=== PATIENT | female | born 1970 | race Caucasian/White ===

== ENCOUNTER 2018-07-11 13:13 | Emergency (ER) | payer OTHER, SELFPAY ==
[2018-07-11 13:20] VITALS: BP 132/84; PULSE 75; RESP 18; TEMP 36.7; O2SAT 100
--- NOTE | 2018-07-11 13:34 | ED.ABDPAIN ---
HPI - Abdominal Pain <WALTER Jules - Last Filed: 07/11/18 15:47> General Chief Complaint: Abdominal Pain Stated Complaint: fluid in abdomen Time Seen by Provider: 07/11/18 13:34 Source: patient Mode of arrival: ambulatory Limitations: no limitations History of Present Illness HPI narrative: c/o feeling bloated and went to [facility] yesterday for it, and was told she had fluid in her belly that needed drained started with abd pain and diarrhea x1 week, diarrhea started that night and next day was gone, had bm today and it was looser than normal, pain is now gone just feels bloated complaint: abdominal pain Onset (ago): week(s) (1) Pain Consistency: constant Location: diffuse Severity: mild Quality: cramping Radiation: none Migration to: no migration Relieving factors: nothing Exacerbating factors: nothing Associated symptoms: denies other symptoms Related Data Home Medications Medication Instructions Recorded Confirmed albuterol sulfate [ProAir HFA] 1 puff INHALATION PRN PRN 07/11/18 07/11/18 loratadine 10 mg PO DAILY 07/11/18 07/11/18 ranitidine HCl 150 mg PO BID 07/11/18 07/11/18 Allergies Allergy/AdvReac Type Severity Reaction Status Date / Time Sulfa (Sulfonamide Allergy Unknown Unverified 12/06/17 11:48 Antibiotics) [SULFA (SULFONAMIDE ANTIBIOTICS)] Tetracyclines [TETRACYCLINES] Allergy Unknown Unverified 12/06/17 11:48 Review of Systems <WALTER Jules - Last Filed: 07/11/18 15:47> Constitutional Reports as per HPI, Reports system reviewed and no additional complaints, except as docu, Denies fever(s) and Denies poor appetite Cardiovascular Denies chest pain and Denies dyspnea Respiratory Denies dyspnea Gastrointestinal Gastrointestinal: Reports as per HPI, Reports abdominal pain, Denies melena, Reports bloating, Denies hematochezia, Denies change in bowel habits, Denies change in stool character, Denies constipation, Denies cramping, Denies fecal incontinence, Denies diarrhea, Reports loose stools, Denies nausea and Denies vomiting Genitourinary Denies dysuria Musculoskeletal Denies back pain Exam <WALTER Jules - Last Filed: 07/11/18 15:47> Initial Vital Signs Initial Vital Signs: Vital Signs Temperature 98.1 F 07/11/18 13:20 Pulse Rate 75 07/11/18 13:20 Respiratory Rate 18 07/11/18 13:20 Blood Pressure 132/84 07/11/18 13:20 Pulse Oximetry 100 07/11/18 13:20 Const General: cooperative, healthy appearing, comfortable and well developed Nutritional Appearance: average body habitus Orientation: alert, awake and oriented x3 Resp Effort & Inspection: normal respiratory effort and able to speak in complete sentences Auscultation: clear to auscultation bilaterally Cardio Rate: regular rate Rhythm: regular rhythm Heart Sounds: S1 normal and S2 normal GI Inspection: normal to inspection, no edema, non-distended and no obesity Palpation: soft and No tender Auscultation: normal bowel sounds Back/Spine/Pelvis Cervical Spine: cervical ROM normal Thoracic/Lumbar Spine: thoraco-lumbar ROM limited Skin General: no rashes or lesions noted, elasticity normal, turgor normal and warm Neuro General: alert, awake and oriented x3 Cranial Nerves: CN's II-XI intact bilaterally Cognition: normal cognition Speech: speech normal Motor: muscle tone normal throughout Sensory Exam: no sensory deficits noted Psych Appearance: grossly normal and well kempt Mental Status: mental status grossly normal Speech and Movement: speech and movement normal Mood: congruent mood Affect: normal affect Attitude: cooperative Thought Process: normal Thought Content: normal Judgment: judgment good <Mariposa Alfred DO - Last Filed: 07/12/18 07:20> Initial Vital Signs Initial Vital Signs: Vital Signs Temperature 98.1 F 07/11/18 13:20 Pulse Rate 75 07/11/18 13:20 Respiratory Rate 18 07/11/18 13:20 Blood Pressure 132/84 07/11/18 13:20 Pulse Oximetry 100 07/11/18 13:20 Course <WALTER Jules - Last Filed: 07/11/18 15:47> Course Narrative: results and dc plan discussed, pt encouraged to f/u with GI for possible scope if continued issues with feeling bloated Orders Ordered: ED Orders 07/11/18 13:30 Amylase Stat Complete Blood Count AUTO DIFF Stat Comprehensive Metabolic Panel Stat Lipase Stat Partial Thromboplastin Time Stat Prothrombin Time INR Stat 07/11/18 13:45 CT abdomen pelvis w con Stat 07/11/18 13:53 US abdomen complete Stat Vital Signs - 8 hr 07/11/18 13:20 07/11/18 15:26 Temperature 98.1 F Pulse Rate 75 80 Respiratory Rate 18 16 Blood Pressure 132/84 Blood Pressure [Left Arm] 97/74 Pulse Oximetry 100 100 <Mariposa Alfred DO - Last Filed: 07/12/18 07:20> Orders Ordered: ED Orders 07/11/18 13:30 Amylase Stat Complete Blood Count AUTO DIFF Stat Comprehensive Metabolic Panel Stat Lipase Stat Partial Thromboplastin Time Stat Prothrombin Time INR Stat 07/11/18 13:45 CT abdomen pelvis w con Stat 07/11/18 13:53 US abdomen complete Stat Vital Signs - 8 hr 07/11/18 13:20 07/11/18 15:26 Temperature 98.1 F Pulse Rate 75 80 Respiratory Rate 18 16 Blood Pressure 132/84 Blood Pressure [Left Arm] 97/74 Pulse Oximetry 100 100 MDM - Abdominal Pain <WALTER Jules - Last Filed: 07/11/18 15:47> Differential Diagnosis Differential diagnosis: Likely abdominal pain, acute appendicitis, constipation, diverticulitis, gastroenteritis, small bowel obstruction and other (ascites, liver failure, chrons, ca) Lab Data Attestation: I reviewed the patient's lab results. Result diagrams: 07/11/18 13:30 07/11/18 13:30 Lab Results 07/11/18 07/11/18 07/11/18 Range/Units 13:30 13:30 13:30 WBC 7.2 (4.5-11.0) X10^3/uL RBC 5.16 (4.0-5.2) X10^6/uL Hgb 16.0 (12.0-16.0) g/dL Hct 46.5 H (36-46) % MCV 90.2 (80-100) fL MCH 31.1 (26-34) PG MCHC 34.5 (30-36) % RDW 12.6 (11.6-14.8) % Plt Count 245 (150-400) X10^3/uL Neut % (Auto) 65.2 (50-75) % Lymph % (Auto) 24.4 L (25-40) % [place] % (Auto) 8.0 (3-14) % Eos % (Auto) 1.5 L (2-4) % Baso % (Auto) 0.9 (0-2) % Neut # (Auto) 4700 (9629-3864) /uL PT 11.3 (10.1-12.7) SECONDS INR 1.1 (0.9-1.3) APTT 31 (26.4-36.2) SECONDS Sodium 145 (137-145) mmol/L Potassium 4.4 (3.4-5.1) mmol/L Chloride 101 (98-107) mmol/L Carbon Dioxide 32 (22-32) mmol/L BUN 14 (7-17) mg/dL Creatinine 0.80 (0.52-1.04) mg/dL Estimated GFR > 60.0 (>60) mL/min BUN/Creatinine Ratio 17.5 (6-22) Glucose 80 (70-100) mg/dL Calcium 9.3 (8.4-10.2) mg/dL Total Bilirubin 0.5 (0.2-1.3) mg/dL AST 35 (14-36) IU/L ALT 42 (9-52) IU/L Alkaline Phosphatase 66 (38-126) U/L Total Protein 7.8 (6.3-8.2) g/dL Albumin 4.9 (3.5-5.0) g/dL Globulin 2.9 (1.7-4.1) g/dL Albumin/Globulin Ratio 1.7 (1.0-2.8) Amylase (30-110) U/L Lipase 143 (23-300) U/L /14/18 Range/Units 13:30 WBC (4.5-11.0) X10^3/uL RBC (4.0-5.2) X10^6/uL Hgb (12.0-16.0) g/dL Hct (36-46) % MCV (80-100) fL MCH (26-34) PG MCHC (30-36) % RDW (11.6-14.8) % Plt Count (150-400) X10^3/uL Neut % (Auto) (50-75) % Lymph % (Auto) (25-40) % [place] % (Auto) (3-14) % Eos % (Auto) (2-4) % Baso % (Auto) (0-2) % Neut # (Auto) (6994-0204) /uL PT (10.1-12.7) SECONDS INR (0.9-1.3) APTT (26.4-36.2) SECONDS Sodium (137-145) mmol/L Potassium (3.4-5.1) mmol/L Chloride (98-107) mmol/L Carbon Dioxide (22-32) mmol/L BUN (7-17) mg/dL Creatinine (0.52-1.04) mg/dL Estimated GFR (>60) mL/min BUN/Creatinine Ratio (6-22) Glucose (70-100) mg/dL Calcium (8.4-10.2) mg/dL Total Bilirubin (0.2-1.3) mg/dL AST (14-36) IU/L ALT (9-52) IU/L Alkaline Phosphatase (38-126) U/L Total Protein (6.3-8.2) g/dL Albumin (3.5-5.0) g/dL Globulin (1.7-4.1) g/dL Albumin/Globulin Ratio (1.0-2.8) Amylase 76 (30-110) U/L Lipase Cancelled (23-300) U/L Point of care testing: Urine Dip Bedside Urine Glucose Negative Bedside Urine Bilirubin - Negative Bedside Urine Ketone - Negative Urine Specific Stryker 1.005 Bedside Urine Occult Blood - Negative Bedside Urine pH 7.0 Bedside Urine Protein - Negative Bedside Urine Urobilinogen - Negative Bedside Urine Nitrite - Negative Bedside Urine Leukocytes - Negative Esterase Imaging Data US - abdomen: My impression: per verbal report by tech Curly - neg CT scan - abdomen: Radiologist's impression: Patient: Elizabeth Nguyen BMR#: [id number] : 1970Acct:[id number] Age/Sex: 47 / FDate of Service: 07/11/18 Loc: ED Accession Number: [id number] Procedure: CT abdomen pelvis w con Ordering Provider: Lorna Lim PROCEDURE: CT ABDOMEN PELVIS W CON INDICATIONS: abd pain TECHNIQUE: After the administration of intravenous contrast, 5 mm thick sections acquired from the diaphragm to the symphysis. 5 mm coronal and sagittal reformats were acquired. For radiation dose reduction, the following was used: automated exposure control, adjustment of mA and/or kV according to patient size. COMPARISON: None. FINDINGS: Image quality: Excellent. ABDOMEN: Lung bases: Lung bases are clear. Heart size is normal. Solid organs: Liver is normal in size and enhancement. Gallbladder is unremarkable. Biliary system is non dilated. Pancreas enhances normally. Spleen is normal in size and enhancement. No adrenal nodules. Kidneys demonstrate normal size and enhancement, without hydronephrosis. Peritoneum and bowel: Bowel loops demonstrate normal wall thickness and caliber. The appendix is thin walled and gas filled. No free fluid or air. Nodes and vessels: No retroperitoneal or mesenteric adenopathy by size criteria. Aorta and inferior vena cava are normal in size. Miscellaneous: No ventral hernias. PELVIS: Genitourinary: Bladder wall thickness is normal. The uterus and ovaries are not visualized and are presumably surgically absent. Miscellaneous: No inguinal hernias or adenopathy. Bones: No suspicious bony lesions. No vertebral body compression fractures. IMPRESSION: 1. No acute intra-abdominal findings. Specifically, no bowel dilatation to suggest obstruction or ileus. 2. Normal appendix. Dictated by: Cathy Houston M.D. on 07/11/2018 at 14:50 Approved by: Cathy Houston M.D. on 07/11/2018 at 14:53 <Mariposa Alfred DO - Last Filed: 07/12/18 07:20> Lab Data Lab Results 07/11/18 07/11/18 07/11/18 Range/Units 13:30 13:30 13:30 WBC 7.2 (4.5-11.0) X10^3/uL RBC 5.16 (4.0-5.2) X10^6/uL Hgb 16.0 (12.0-16.0) g/dL Hct 46.5 H (36-46) % MCV 90.2 (80-100) fL MCH 31.1 (26-34) PG MCHC 34.5 (30-36) % RDW 12.6 (11.6-14.8) % Plt Count 245 (150-400) X10^3/uL Neut % (Auto) 65.2 (50-75) % Lymph % (Auto) 24.4 L (25-40) % [place] % (Auto) 8.0 (3-14) % Eos % (Auto) 1.5 L (2-4) % Baso % (Auto) 0.9 (0-2) % Neut # (Auto) 4700 (2757-5557) /uL PT 11.3 (10.1-12.7) SECONDS INR 1.1 (0.9-1.3) APTT 31 (26.4-36.2) SECONDS Sodium 145 (137-145) mmol/L Potassium 4.4 (3.4-5.1) mmol/L Chloride 101 (98-107) mmol/L Carbon Dioxide 32 (22-32) mmol/L BUN 14 (7-17) mg/dL Creatinine 0.80 (0.52-1.04) mg/dL Estimated GFR > 60.0 (>60) mL/min BUN/Creatinine Ratio 17.5 (6-22) Glucose 80 (70-100) mg/dL Calcium 9.3 (8.4-10.2) mg/dL Total Bilirubin 0.5 (0.2-1.3) mg/dL AST 35 (14-36) IU/L ALT 42 (9-52) IU/L Alkaline Phosphatase 66 (38-126) U/L Total Protein 7.8 (6.3-8.2) g/dL Albumin 4.9 (3.5-5.0) g/dL Globulin 2.9 (1.7-4.1) g/dL Albumin/Globulin Ratio 1.7 (1.0-2.8) Amylase (30-110) U/L Lipase 143 (23-300) U/L /14/18 Range/Units 13:30 WBC (4.5-11.0) X10^3/uL RBC (4.0-5.2) X10^6/uL Hgb (12.0-16.0) g/dL Hct (36-46) % MCV (80-100) fL MCH (26-34) PG MCHC (30-36) % RDW (11.6-14.8) % Plt Count (150-400) X10^3/uL Neut % (Auto) (50-75) % Lymph % (Auto) (25-40) % [place] % (Auto) (3-14) % Eos % (Auto) (2-4) % Baso % (Auto) (0-2) % Neut # (Auto) (6072-4478) /uL PT (10.1-12.7) SECONDS INR (0.9-1.3) APTT (26.4-36.2) SECONDS Sodium (137-145) mmol/L Potassium (3.4-5.1) mmol/L Chloride (98-107) mmol/L Carbon Dioxide (22-32) mmol/L BUN (7-17) mg/dL Creatinine (0.52-1.04) mg/dL Estimated GFR (>60) mL/min BUN/Creatinine Ratio (6-22) Glucose (70-100) mg/dL Calcium (8.4-10.2) mg/dL Total Bilirubin (0.2-1.3) mg/dL AST (14-36) IU/L ALT (9-52) IU/L Alkaline Phosphatase (38-126) U/L Total Protein (6.3-8.2) g/dL Albumin (3.5-5.0) g/dL Globulin (1.7-4.1) g/dL Albumin/Globulin Ratio (1.0-2.8) Amylase 76 (30-110) U/L Lipase Cancelled (23-300) U/L Point of care testing: Urine Dip Bedside Urine Glucose Negative Bedside Urine Bilirubin - Negative Bedside Urine Ketone - Negative Urine Specific Stryker 1.005 Bedside Urine Occult Blood - Negative Bedside Urine pH 7.0 Bedside Urine Protein - Negative Bedside Urine Urobilinogen - Negative Bedside Urine Nitrite - Negative Bedside Urine Leukocytes - Negative Esterase Discharge Plan Departure Patient Disposition: Home Clinical Impression: Abdominal bloating Discharge Date/Time: 07/11/18 15:36 Interventions: ED Discharge Assessment Last Done: 07/11/18 15:36 Instructions: How to Avoid Gas, Acute Abdominal Pain Prescriptions: No Action ranitidine HCl 150 mg tablet 150 mg PO BID RF: 0 albuterol sulfate [ProAir HFA] 90 mcg/actuation HFA aerosol inhaler 1 puff Inhalation PRN PRN (Reason: Shortness Of Breath) RF: 0 loratadine 10 mg tablet 10 mg PO DAILY RF: 0 Referrals: Andrei Gilbert MD [Non-Staff] - (in approx 3-5 days as needed) <Mariposa Alfred DO - Last Filed: 07/12/18 07:20> Cosign ED Attending Cosignature Attestation: I was immediately available in the department for consultation. Documentation has been reviewed. I agree with assessment and plan.
--- NOTE | 2018-07-11 13:45 | DI.CT.S_ITS ---
PROCEDURE: CT ABDOMEN PELVIS W CON INDICATIONS: abd pain TECHNIQUE: After the administration of intravenous contrast, 5 mm thick sections acquired from the diaphragm to the symphysis. 5 mm coronal and sagittal reformats were acquired. For radiation dose reduction, the following was used: automated exposure control, adjustment of mA and/or kV according to patient size. COMPARISON: None. FINDINGS: Image quality: Excellent. ABDOMEN: Lung bases: Lung bases are clear. Heart size is normal. Solid organs: Liver is normal in size and enhancement. Gallbladder is unremarkable. Biliary system is non dilated. Pancreas enhances normally. Spleen is normal in size and enhancement. No adrenal nodules. Kidneys demonstrate normal size and enhancement, without hydronephrosis. Peritoneum and bowel: Bowel loops demonstrate normal wall thickness and caliber. The appendix is thin walled and gas filled. No free fluid or air. Nodes and vessels: No retroperitoneal or mesenteric adenopathy by size criteria. Aorta and inferior vena cava are normal in size. Miscellaneous: No ventral hernias. PELVIS: Genitourinary: Bladder wall thickness is normal. The uterus and ovaries are not visualized and are presumably surgically absent. Miscellaneous: No inguinal hernias or adenopathy. Bones: No suspicious bony lesions. No vertebral body compression fractures. IMPRESSION: 1. No acute intra-abdominal findings. Specifically, no bowel dilatation to suggest obstruction or ileus. 2. Normal appendix. Dictated by: Cathy Houston M.D. on 07/11/2018 at 14:50 Approved by: Cathy Houston M.D. on 07/11/2018 at 14:53
[2018-07-11 13:51] LABS: Add Manual Diff / Slide Review NO; Basophils Percent Auto 0.9 % (0-2); Eosinophils Percent Auto 1.5 % (2-4); Hematocrit 46.5 % (36-46); Lymphocytes Percent Auto 24.4 % (25-40); Mean Corpuscular HGB Conc 34.5 % (30-36); Mean Corpuscular Hemoglobin 31.1 PG (26-34); Mean Corpuscular Volume 90.2 fL (80-100); Neutrophils Absolute Auto 4700 /uL (3000-5900); Neutrophils Percent Auto 65.2 % (50-75); Platelet Count 245 X10^3/uL (150-400); Red Blood Cell Count 5.16 X10^6/uL (4.0-5.2); Red Cell Distribution Width 12.6 % (11.6-14.8); White Blood Cell Count 7.2 X10^3/uL (4.5-11.0)
[2018-07-11 13:52] LABS: INR 1.1 (0.9-1.3); Prothrombin Time 11.3 SECONDS (10.1-12.7)
--- NOTE | 2018-07-11 13:53 | ED_ITS ---
HPI - Abdominal Pain <WALTER Jules - Last Filed: 07/11/18 15:47> General Chief Complaint: Abdominal Pain Stated Complaint: fluid in abdomen Time Seen by Provider: 07/11/18 13:34 Source: patient Mode of arrival: ambulatory Limitations: no limitations History of Present Illness HPI narrative: c/o feeling bloated and went to [facility] yesterday for it, and was told she had fluid in her belly that needed drained started with abd pain and diarrhea x1 week, diarrhea started that night and next day was gone, had bm today and it was looser than normal, pain is now gone just feels bloated complaint: abdominal pain Onset (ago): week(s) (1) Pain Consistency: constant Location: diffuse Severity: mild Quality: cramping Radiation: none Migration to: no migration Relieving factors: nothing Exacerbating factors: nothing Associated symptoms: denies other symptoms Related Data Home Medications Medication Instructions Recorded Confirmed albuterol sulfate [ProAir HFA] 1 puff INHALATION PRN PRN 07/11/18 07/11/18 loratadine 10 mg PO DAILY 07/11/18 07/11/18 ranitidine HCl 150 mg PO BID 07/11/18 07/11/18 Allergies Allergy/AdvReac Type Severity Reaction Status Date / Time Sulfa (Sulfonamide Allergy Unknown Unverified 12/06/17 11:48 Antibiotics) [SULFA (SULFONAMIDE ANTIBIOTICS)] Tetracyclines [TETRACYCLINES] Allergy Unknown Unverified 12/06/17 11:48 Review of Systems <WALTER Jules - Last Filed: 07/11/18 15:47> Constitutional Reports as per HPI, Reports system reviewed and no additional complaints, except as docu, Denies fever(s) and Denies poor appetite Cardiovascular Denies chest pain and Denies dyspnea Respiratory Denies dyspnea Gastrointestinal Gastrointestinal: Reports as per HPI, Reports abdominal pain, Denies melena, Reports bloating, Denies hematochezia, Denies change in bowel habits, Denies change in stool character, Denies constipation, Denies cramping, Denies fecal incontinence, Denies diarrhea, Reports loose stools, Denies nausea and Denies vomiting Genitourinary Denies dysuria Musculoskeletal Denies back pain Exam <WALTER Jules - Last Filed: 07/11/18 15:47> Initial Vital Signs Initial Vital Signs: Vital Signs Temperature 98.1 F 07/11/18 13:20 Pulse Rate 75 07/11/18 13:20 Respiratory Rate 18 07/11/18 13:20 Blood Pressure 132/84 07/11/18 13:20 Pulse Oximetry 100 07/11/18 13:20 Const General: cooperative, healthy appearing, comfortable and well developed Nutritional Appearance: average body habitus Orientation: alert, awake and oriented x3 Resp Effort & Inspection: normal respiratory effort and able to speak in complete sentences Auscultation: clear to auscultation bilaterally Cardio Rate: regular rate Rhythm: regular rhythm Heart Sounds: S1 normal and S2 normal GI Inspection: normal to inspection, no edema, non-distended and no obesity Palpation: soft and No tender Auscultation: normal bowel sounds Back/Spine/Pelvis Cervical Spine: cervical ROM normal Thoracic/Lumbar Spine: thoraco-lumbar ROM limited Skin General: no rashes or lesions noted, elasticity normal, turgor normal and warm Neuro General: alert, awake and oriented x3 Cranial Nerves: CN's II-XI intact bilaterally Cognition: normal cognition Speech: speech normal Motor: muscle tone normal throughout Sensory Exam: no sensory deficits noted Psych Appearance: grossly normal and well kempt Mental Status: mental status grossly normal Speech and Movement: speech and movement normal Mood: congruent mood Affect: normal affect Attitude: cooperative Thought Process: normal Thought Content: normal Judgment: judgment good <Mariposa Alfred DO - Last Filed: 07/12/18 07:20> Initial Vital Signs Initial Vital Signs: Vital Signs Temperature 98.1 F 07/11/18 13:20 Pulse Rate 75 07/11/18 13:20 Respiratory Rate 18 07/11/18 13:20 Blood Pressure 132/84 07/11/18 13:20 Pulse Oximetry 100 07/11/18 13:20 Course <WALTER Jules - Last Filed: 07/11/18 15:47> Course Narrative: results and dc plan discussed, pt encouraged to f/u with GI for possible scope if continued issues with feeling bloated Orders Ordered: ED Orders 07/11/18 13:30 Amylase Stat Complete Blood Count AUTO DIFF Stat Comprehensive Metabolic Panel Stat Lipase Stat Partial Thromboplastin Time Stat Prothrombin Time INR Stat 07/11/18 13:45 CT abdomen pelvis w con Stat 07/11/18 13:53 US abdomen complete Stat Vital Signs - 8 hr 07/11/18 13:20 07/11/18 15:26 Temperature 98.1 F Pulse Rate 75 80 Respiratory Rate 18 16 Blood Pressure 132/84 Blood Pressure [Left Arm] 97/74 Pulse Oximetry 100 100 <Mariposa Alfred DO - Last Filed: 07/12/18 07:20> Orders Ordered: ED Orders 07/11/18 13:30 Amylase Stat Complete Blood Count AUTO DIFF Stat Comprehensive Metabolic Panel Stat Lipase Stat Partial Thromboplastin Time Stat Prothrombin Time INR Stat 07/11/18 13:45 CT abdomen pelvis w con Stat 07/11/18 13:53 US abdomen complete Stat Vital Signs - 8 hr 07/11/18 13:20 07/11/18 15:26 Temperature 98.1 F Pulse Rate 75 80 Respiratory Rate 18 16 Blood Pressure 132/84 Blood Pressure [Left Arm] 97/74 Pulse Oximetry 100 100 MDM - Abdominal Pain <WALTER Jules - Last Filed: 07/11/18 15:47> Differential Diagnosis Differential diagnosis: Likely abdominal pain, acute appendicitis, constipation , diverticulitis, gastroenteritis, small bowel obstruction and other (ascites, liver failure, chrons, ca) Lab Data Attestation: I reviewed the patient's lab results. Result diagrams: 07/11/18 13:30 07/11/18 13:30 Lab Results 07/11/18 07/11/18 07/11/18 Range/Units 13:30 13:30 13:30 WBC 7.2 (4.5-11.0) X10^3/uL RBC 5.16 (4.0-5.2) X10^6/uL Hgb 16.0 (12.0-16.0) g/dL Hct 46.5 H (36-46) % MCV 90.2 (80-100) fL MCH 31.1 (26-34) PG MCHC 34.5 (30-36) % RDW 12.6 (11.6-14.8) % Plt Count 245 (150-400) X10^3/uL Neut % (Auto) 65.2 (50-75) % Lymph % (Auto) 24.4 L (25-40) % Pickett % (Auto) 8.0 (3-14) % Eos % (Auto) 1.5 L (2-4) % Baso % (Auto) 0.9 (0-2) % Neut # (Auto) 4700 (6936-9172) /uL PT 11.3 (10.1-12.7) SECONDS INR 1.1 (0.9-1.3) APTT 31 (26.4-36.2) SECONDS Sodium 145 (137-145) mmol/L Potassium 4.4 (3.4-5.1) mmol/L Chloride 101 (98-107) mmol/L Carbon Dioxide 32 (22-32) mmol/L BUN 14 (7-17) mg/dL Creatinine 0.80 (0.52-1.04) mg/dL Estimated GFR > 60.0 (>60) mL/min BUN/Creatinine Ratio 17.5 (6-22) Glucose 80 (70-100) mg/dL Calcium 9.3 (8.4-10.2) mg/dL Total Bilirubin 0.5 (0.2-1.3) mg/dL AST 35 (14-36) IU/L ALT 42 (9-52) IU/L Alkaline Phosphatase 66 (38-126) U/L Total Protein 7.8 (6.3-8.2) g/dL Albumin 4.9 (3.5-5.0) g/dL Globulin 2.9 (1.7-4.1) g/dL Albumin/Globulin Ratio 1.7 (1.0-2.8) Amylase (30-110) U/L Lipase 143 (23-300) U/L /14/18 Range/Units 13:30 WBC (4.5-11.0) X10^3/uL RBC (4.0-5.2) X10^6/uL Hgb (12.0-16.0) g/dL Hct (36-46) % MCV (80-100) fL MCH (26-34) PG MCHC (30-36) % RDW (11.6-14.8) % Plt Count (150-400) X10^3/uL Neut % (Auto) (50-75) % Lymph % (Auto) (25-40) % Pickett % (Auto) (3-14) % Eos % (Auto) (2-4) % Baso % (Auto) (0-2) % Neut # (Auto) (9674-7482) /uL PT (10.1-12.7) SECONDS INR (0.9-1.3) APTT (26.4-36.2) SECONDS Sodium (137-145) mmol/L Potassium (3.4-5.1) mmol/L Chloride (98-107) mmol/L Carbon Dioxide (22-32) mmol/L BUN (7-17) mg/dL Creatinine (0.52-1.04) mg/dL Estimated GFR (>60) mL/min BUN/Creatinine Ratio (6-22) Glucose (70-100) mg/dL Calcium (8.4-10.2) mg/dL Total Bilirubin (0.2-1.3) mg/dL AST (14-36) IU/L ALT (9-52) IU/L Alkaline Phosphatase (38-126) U/L Total Protein (6.3-8.2) g/dL Albumin (3.5-5.0) g/dL Globulin (1.7-4.1) g/dL Albumin/Globulin Ratio (1.0-2.8) Amylase 76 (30-110) U/L Lipase Cancelled (23-300) U/L Point of care testing: Urine Dip Bedside Urine Glucose Negative Bedside Urine Bilirubin - Negative Bedside Urine Ketone - Negative Urine Specific Caney 1.005 Bedside Urine Occult Blood - Negative Bedside Urine pH 7.0 Bedside Urine Protein - Negative Bedside Urine Urobilinogen - Negative Bedside Urine Nitrite - Negative Bedside Urine Leukocytes - Negative Esterase Imaging Data US - abdomen: My impression: per verbal report by tech Curly - neg CT scan - abdomen: Radiologist's impression: Patient: Elizabeth Nguyen BMR#: [id number] : 1970Acct:[id number] Age/Sex: 47 / FDate of Service: 07/11/18 Loc: ED Accession Number: [id number] Procedure: CT abdomen pelvis w con Ordering Provider: Lorna Lim PROCEDURE: CT ABDOMEN PELVIS W CON INDICATIONS: abd pain TECHNIQUE: After the administration of intravenous contrast, 5 mm thick sections acquired from the diaphragm to the symphysis. 5 mm coronal and sagittal reformats were acquired. For radiation dose reduction, the following was used: automated exposure control, adjustment of mA and/or kV according to patient size. COMPARISON: None. FINDINGS: Image quality: Excellent. ABDOMEN: Lung bases: Lung bases are clear. Heart size is normal. Solid organs: Liver is normal in size and enhancement. Gallbladder is unremarkable. Biliary system is non dilated. Pancreas enhances normally. Spleen is normal in size and enhancement. No adrenal nodules. Kidneys demonstrate normal size and enhancement, without hydronephrosis. Peritoneum and bowel: Bowel loops demonstrate normal wall thickness and caliber. The appendix is thin walled and gas filled. No free fluid or air. Nodes and vessels: No retroperitoneal or mesenteric adenopathy by size criteria. Aorta and inferior vena cava are normal in size. Miscellaneous: No ventral hernias. PELVIS: Genitourinary: Bladder wall thickness is normal. The uterus and ovaries are not visualized and are presumably surgically absent. Miscellaneous: No inguinal hernias or adenopathy. Bones: No suspicious bony lesions. No vertebral body compression fractures. IMPRESSION: 1. No acute intra-abdominal findings. Specifically, no bowel dilatation to suggest obstruction or ileus. 2. Normal appendix. Dictated by: Cathy Houston M.D. on 07/11/2018 at 14:50 Approved by: Cathy Houston M.D. on 07/11/2018 at 14:53 <Mariposa Alfred DO - Last Filed: 07/12/18 07:20> Lab Data Lab Results 07/11/18 07/11/18 07/11/18 Range/Units 13:30 13:30 13:30 WBC 7.2 (4.5-11.0) X10^3/uL RBC 5.16 (4.0-5.2) X10^6/uL Hgb 16.0 (12.0-16.0) g/dL Hct 46.5 H (36-46) % MCV 90.2 (80-100) fL MCH 31.1 (26-34) PG MCHC 34.5 (30-36) % RDW 12.6 (11.6-14.8) % Plt Count 245 (150-400) X10^3/uL Neut % (Auto) 65.2 (50-75) % Lymph % (Auto) 24.4 L (25-40) % Pickett % (Auto) 8.0 (3-14) % Eos % (Auto) 1.5 L (2-4) % Baso % (Auto) 0.9 (0-2) % Neut # (Auto) 4700 (1215-3803) /uL PT 11.3 (10.1-12.7) SECONDS INR 1.1 (0.9-1.3) APTT 31 (26.4-36.2) SECONDS Sodium 145 (137-145) mmol/L Potassium 4.4 (3.4-5.1) mmol/L Chloride 101 (98-107) mmol/L Carbon Dioxide 32 (22-32) mmol/L BUN 14 (7-17) mg/dL Creatinine 0.80 (0.52-1.04) mg/dL Estimated GFR > 60.0 (>60) mL/min BUN/Creatinine Ratio 17.5 (6-22) Glucose 80 (70-100) mg/dL Calcium 9.3 (8.4-10.2) mg/dL Total Bilirubin 0.5 (0.2-1.3) mg/dL AST 35 (14-36) IU/L ALT 42 (9-52) IU/L Alkaline Phosphatase 66 (38-126) U/L Total Protein 7.8 (6.3-8.2) g/dL Albumin 4.9 (3.5-5.0) g/dL Globulin 2.9 (1.7-4.1) g/dL Albumin/Globulin Ratio 1.7 (1.0-2.8) Amylase (30-110) U/L Lipase 143 (23-300) U/L /14/18 Range/Units 13:30 WBC (4.5-11.0) X10^3/uL RBC (4.0-5.2) X10^6/uL Hgb (12.0-16.0) g/dL Hct (36-46) % MCV (80-100) fL MCH (26-34) PG MCHC (30-36) % RDW (11.6-14.8) % Plt Count (150-400) X10^3/uL Neut % (Auto) (50-75) % Lymph % (Auto) (25-40) % Pickett % (Auto) (3-14) % Eos % (Auto) (2-4) % Baso % (Auto) (0-2) % Neut # (Auto) (2353-8025) /uL PT (10.1-12.7) SECONDS INR (0.9-1.3) APTT (26.4-36.2) SECONDS Sodium (137-145) mmol/L Potassium (3.4-5.1) mmol/L Chloride (98-107) mmol/L Carbon Dioxide (22-32) mmol/L BUN (7-17) mg/dL Creatinine (0.52-1.04) mg/dL Estimated GFR (>60) mL/min BUN/Creatinine Ratio (6-22) Glucose (70-100) mg/dL Calcium (8.4-10.2) mg/dL Total Bilirubin (0.2-1.3) mg/dL AST (14-36) IU/L ALT (9-52) IU/L Alkaline Phosphatase (38-126) U/L Total Protein (6.3-8.2) g/dL Albumin (3.5-5.0) g/dL Globulin (1.7-4.1) g/dL Albumin/Globulin Ratio (1.0-2.8) Amylase 76 (30-110) U/L Lipase Cancelled (23-300) U/L Point of care testing: Urine Dip Bedside Urine Glucose Negative Bedside Urine Bilirubin - Negative Bedside Urine Ketone - Negative Urine Specific Caney 1.005 Bedside Urine Occult Blood - Negative Bedside Urine pH 7.0 Bedside Urine Protein - Negative Bedside Urine Urobilinogen - Negative Bedside Urine Nitrite - Negative Bedside Urine Leukocytes - Negative Esterase Discharge Plan Departure Patient Disposition: Home Clinical Impression: Abdominal bloating Discharge Date/Time: 07/11/18 15:36 Interventions: ED Discharge Assessment Last Done: 07/11/18 15:36 Instructions: How to Avoid Gas, Acute Abdominal Pain Prescriptions: No Action ranitidine HCl 150 mg tablet 150 mg PO BID RF: 0 albuterol sulfate [ProAir HFA] 90 mcg/actuation HFA aerosol inhaler 1 puff Inhalation PRN PRN (Reason: Shortness Of Breath) RF: 0 loratadine 10 mg tablet 10 mg PO DAILY RF: 0 Referrals: Andrei Gilbert MD [Non-Staff] - (in approx 3-5 days as needed) <Mariposa Alfred DO - Last Filed: 07/12/18 07:20> Cosign ED Attending Cosignature Attestation: I was immediately available in the department for consultation. Documentation has been reviewed. I agree with assessment and plan.
--- NOTE | 2018-07-11 13:53 | DI.US.S_ITS ---
PROCEDURE: US ABDOMEN COMPLETE INDICATIONS: ascites TECHNIQUE: Real-time scanning was performed of the abdominal and retroperitoneal organs, with image documentation. COMPARISON: None. FINDINGS: Liver: Liver is normal in size and homogeneous in echotexture. Gallbladder: Gallbladder is normal in size. There is no cholelithiasis or evidence of acute inflammation. Biliary ducts: No intrahepatic or extrahepatic biliary dilatation is evident. The common bile duct measures 4 mm in diameter. Pancreas: Visualized portions of the pancreas are sonographically normal. Spleen: Spleen is normal in size and homogeneous in echotexture. Kidneys: Kidneys are normal in size and echotexture. Right kidney measures 10.1 cm long; left kidney measures 9.6 cm long. No hydronephrosis or shadowing nephrolithiasis. No solid masses. Aorta: Visualized aorta is normal in caliber at less than 3 cm. Iliacs: Obscured by bowel gas. IVC: Intrahepatic inferior vena cava is patent. Miscellaneous: No free abdominal fluid. IMPRESSION: 1. No evidence of abdominal ascites. 2. No cholelithiasis or evidence of acute cholecystitis. 3. No renal hydronephrosis. Dictated by: Raghavendra Samuel M.D. on 07/11/2018 at 13:43 Approved by: Raghavendra Samuel M.D. on 07/11/2018 at 13:45
[2018-07-11 13:54] LABS: PTT Partial Thromboplastin Tim 31 SECONDS (26.4-36.2)
[2018-07-11 13:57] LABS: Amylase 76 U/L (30-110)
[2018-07-11 13:58] LABS: Alanine Aminotransferase 42 IU/L (9-52); Albumin 4.9 g/dL (3.5-5.0); Albumin Globulin Ratio 1.7 (1.0-2.8); Alkaline Phosphatase 66 U/L (38-126); Aspartate Aminotransferase 35 IU/L (14-36); BUN Creatinine Ratio 17.5 (6-22); Bilirubin Total 0.5 mg/dL (0.2-1.3); Blood Urea Nitrogen 14 mg/dL (7-17); Calcium 9.3 mg/dL (8.4-10.2); Carbon Dioxide 32 mmol/L (22-32); Chloride 101 mmol/L (98-107); Estimated Glomerular Filt Rate > 60.0 mL/min (>60); Globulin 2.9 g/dL (1.7-4.1); Glucose 80 mg/dL (70-100); HEMOLYSIS < 15 (0-50); Lipase 143 U/L (23-300); Potassium 4.4 mmol/L (3.4-5.1); Sodium 145 mmol/L (137-145); Total Protein 7.8 g/dL (6.3-8.2)
[2018-07-11 15:26] VITALS: BP 97/74; PULSE 80; RESP 16; O2SAT 100
== END 2018-07-11 15:36 | disposition home or self-care (01) ==
PROVIDERS: Emergency Provider Nurse Practitioner
DX: R14.0 Abdominal distension (gaseous) (principal)
CPT/HCPCS: 36591; 74177; 76700; 80053; 81003; 82150; 83690; 85025; 85610; 85730; 99282; 99285; Q9967

== ENCOUNTER → 2018-10-18 16:27 | Outpatient (CLI) | payer OTHER, SELFPAY ==
--- NOTE | 2018-10-18 | DI.MRI.S_ITS ---
PROCEDURE: MR HEAD/BRAIN WO CON INDICATIONS: DIZZINESS,TIREDNESS TECHNIQUE: Noncontrast axial T1 spin echo, axial T2 fast spin echo, sagittal and axial FLAIR, coronal T2 fast spin echo, axial gradient echo, axial diffusion and ADC through the brain. COMPARISON: None. FINDINGS: Image quality: Excellent. CSF Spaces: Basal cisterns are patent. No extra-axial fluid collections. Ventricles are normal in size and shape. Brain: No intracranial masses or hemorrhage. Portillo/white matter interface is normal. Brainstem appears normal. Diffusion-weighted images demonstrate no acute ischemic insult. No chronic ischemic insults. Normal intravascular flow voids are present. Skull and face: Calvarium has normal marrow signal. Orbits appear normal. Sinuses: Sinuses and mastoids are clear. IMPRESSION: Normal for age, as source of current symptoms is not seen. Dictated by: Luiz Hughes M.D. on 10/19/2018 at 8:13 Approved by: Luiz Hughes M.D. on 10/19/2018 at 8:14
== END ==
PROVIDERS: PCP Family Medicine; Visit Provider Psychiatry & Neurology Neurology
DX: R42 Dizziness and giddiness (principal); R53.83 Other fatigue
CPT/HCPCS: 70551

== ENCOUNTER → 2019-10-03 14:57 | Outpatient (CLI) | payer OTHER, SELFPAY ==
--- NOTE | 2019-10-03 15:01 | DI.MG.S_ITS ---
Patient Name: SILVA MARTINEZ date: 1970 Sex: F Attending Physician: Claudine Indications: Date: 10/03/2019 15:01 At the request of: EFREN PLASCENCIA Procedure: MM screening mammo BI BILATERAL DIGITAL SCREENING MAMMOGRAM 3D/2D WITH CAD: 10/03/2019 CLINICAL: Routine screening. Comparison is made to exams dated: 01/09/2018 mammogram, 12/21/2016 mammogram, and 11/11/2015 mammogram - [facility]. The tissue of both breasts is heterogeneously dense. This may lower the sensitivity of mammography. Current study was also evaluated with a Computer Aided Detection (CAD) system. There is a mole marker on both breasts. No significant masses, calcifications, or other findings are seen in either breast. There has been no significant interval change. IMPRESSION: NEGATIVE There is no mammographic evidence of malignancy. A 1 year screening mammogram is recommended. This exam was interpreted at Station ID: [id number]. NOTE: For mammograms, a report in lay terms will be sent to the patient. Approximately 15% of breast malignancies will not be visualized mammographically. In the management of a palpable breast mass, a negative mammogram must not discourage biopsy of a clinically suspicious lesion. Electronically Signed By: Zia gilmore/vazquez:10/03/2019 19:35:04 letter sent: Normal Exam ACR BI-RADS Category 1: Negative 3341F
== END ==
PROVIDERS: PCP Internal Medicine; Referring Provider Internal Medicine; Visit Provider Internal Medicine
DX: Z12.31 Encounter for screening mammogram for malignant neoplasm of breast (principal)
CPT/HCPCS: 77063; 77067

== ENCOUNTER → 2020-10-06 15:27 | Outpatient (CLI) | payer OTHER, SELFPAY ==
--- NOTE | 2020-10-06 | DI.MG.S_ITS ---
BILATERAL DIGITAL SCREENING MAMMOGRAM 3D/2D WITH CAD: 10/06/2020 CLINICAL: Routine screening. Family history of breast cancer. Comparison is made to exams dated: 10/03/2019 mammogram - [facility], 01/09/2018 mammogram, and 12/21/2016 mammogram - [facility]. There are scattered fibroglandular elements in both breasts. Current study was also evaluated with a Computer Aided Detection (CAD) system. No significant masses, calcifications, or other findings are seen in either breast. There has been no significant interval change. IMPRESSION: NEGATIVE There is no mammographic evidence of malignancy. A 1 year screening mammogram is recommended. This exam was interpreted at Station ID: [id number]. NOTE: For mammograms, a report in lay terms will be sent to the patient. Approximately 15% of breast malignancies will not be visualized mammographically. In the management of a palpable breast mass, a negative mammogram must not discourage biopsy of a clinically suspicious lesion. Electronically Signed By: Nicole west/vazquez:10/06/2020 17:36:04 letter sent: Normal Exam ACR BI-RADS Category 1: Negative 3341F
== END ==
PROVIDERS: PCP Internal Medicine; Referring Provider Internal Medicine; Visit Provider Internal Medicine
DX: Z12.31 Encounter for screening mammogram for malignant neoplasm of breast (principal); Z80.3 Family history of malignant neoplasm of breast
CPT/HCPCS: 77063; 77067

== ENCOUNTER → 2021-10-12 15:12 | Outpatient (CLI) | payer OTHER, SELFPAY ==
--- NOTE | 2021-10-12 | DI.MG.S_ITS ---
BILATERAL DIGITAL SCREENING MAMMOGRAM 3D/2D WITH CAD: 10/12/2021 CLINICAL: Routine screening. Family history of breast cancer. Comparison is made to exams dated: 10/06/2020 mammogram, 10/03/2019 mammogram - [facility], and 01/30/2018 ultrasound - [facility]. There are scattered fibroglandular elements in both breasts. Current study was also evaluated with a Computer Aided Detection (CAD) system. No significant masses, calcifications, or other findings are seen in either breast. There has been no significant interval change. IMPRESSION: NEGATIVE There is no mammographic evidence of malignancy. A 1 year screening mammogram is recommended. This exam was interpreted at Station ID: [id number]. NOTE: For mammograms, a report in lay terms will be sent to the patient. Approximately 15% of breast malignancies will not be visualized mammographically. In the management of a palpable breast mass, a negative mammogram must not discourage biopsy of a clinically suspicious lesion. Electronically Signed By: Nicole west/vazquez:10/12/2021 16:25:27 letter sent: Normal Exam ACR BI-RADS Category 1: Negative 3341F
== END ==
PROVIDERS: PCP Internal Medicine; Referring Provider Internal Medicine; Visit Provider Internal Medicine
DX: Z12.31 Encounter for screening mammogram for malignant neoplasm of breast (principal); Z80.3 Family history of malignant neoplasm of breast
CPT/HCPCS: 77063; 77067

== ENCOUNTER → 2022-10-13 11:05 | Outpatient (CLI) | payer OTHER, SELFPAY ==
--- NOTE | 2022-10-13 | DI.MG.S_ITS ---
BILATERAL DIGITAL SCREENING MAMMOGRAM 3D/2D WITH CAD: 10/13/2022 CLINICAL: Routine screening. Family history of breast cancer. Comparison is made to exams dated: 10/12/2021 mammogram, 10/06/2020 mammogram, and 10/03/2019 mammogram - [facility]. There are scattered areas of fibroglandular density in both breasts (category b / 25%-50% glandular tissue). Current study was also evaluated with a Computer Aided Detection (CAD) system. No significant masses, calcifications, or other findings are seen in either breast. There has been no significant interval change. IMPRESSION: NEGATIVE There is no mammographic evidence of malignancy. A 1 year screening mammogram is recommended. Based on the Tyrer Cuzick model (a risk assessment model) the patient's lifetime risk is 10.1% and her 10 year risk is 2.6%. According to the ACR, ACS, and NCCN guidelines, an annual breast MRI exam along with mammogram is recommended if the patient's lifetime risk is 20% or greater. This exam was interpreted at Station ID: [id number]. NOTE: For mammograms, a report in lay terms will be sent to the patient. Approximately 15% of breast malignancies will not be visualized mammographically. In the management of a palpable breast mass, a negative mammogram must not discourage biopsy of a clinically suspicious lesion. Electronically Signed By: Deniz betancourt/vazquez:10/13/2022 13:33:48 letter sent: Normal Exam ACR BI-RADS Category 1: Negative 3341F
== END ==
PROVIDERS: PCP Family Medicine; Referring Provider Family Medicine; Visit Provider Family Medicine
DX: Z12.31 Encounter for screening mammogram for malignant neoplasm of breast (principal); Z80.3 Family history of malignant neoplasm of breast
CPT/HCPCS: 77063; 77067

== ENCOUNTER 2023-04-06 17:16 | Emergency (ER) | payer OTHER, SELFPAY ==
[2023-04-06 17:27] VITALS: BP 137/83; PULSE 103; RESP 18; TEMP 36.9; O2SAT 98; BMI 26.5
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
[2023-04-06] MEDS: ACETAMINOPHEN 325 MG TABLET 975 MG PO (18:21)
[2023-04-06 20:42] VITALS: BP 140/72; PULSE 82; RESP 18; O2SAT 98
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
== END 2023-04-06 22:34 | disposition home or self-care (01) ==
PROVIDERS: Emergency Provider Emergency Medicine; PCP Family Medicine
DX: S09.90XA Unspecified injury of head, initial encounter (principal); M54.6 Pain in thoracic spine; V89.2XXA Person injured in unspecified motor-vehicle accident, traffic, initial encounter
CPT/HCPCS: 72072; 81003; 99283

== ENCOUNTER → 2023-05-30 16:11 | Outpatient (CLI) | payer OTHER, SELFPAY ==
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
== END ==
PROVIDERS: PCP Family Medicine; Referring Provider Physician Assistant Surgical; Visit Provider Physician Assistant Surgical
DX: S22.060A Wedge compression fracture of T7-T8 vertebra, initial encounter for closed fracture (principal); S29.019A Strain of muscle and tendon of unspecified wall of thorax, initial encounter; S16.1XXA Strain of muscle, fascia and tendon at neck level, initial encounter; M47.22 Other spondylosis with radiculopathy, cervical region; M48.02 Spinal stenosis, cervical region; M50.11 Cervical disc disorder with radiculopathy, high cervical region; M51.44 Schmorl's nodes, thoracic region
CPT/HCPCS: 72141; 72146

== ENCOUNTER → 2023-10-18 11:47 | Outpatient (CLI) | payer OTHER, SELFPAY ==
--- NOTE | 2023-10-18 | DI.MG.S_ITS ---
BILATERAL DIGITAL SCREENING MAMMOGRAM 3D/2D WITH CAD: 10/18/2023 CLINICAL: Routine screening. Family history of breast cancer. Comparison is made to exams dated: 10/13/2022 mammogram, 10/12/2021 mammogram, and 10/06/2020 mammogram - [facility]. There are scattered areas of fibroglandular density in both breasts (category b / 25%-50% glandular tissue). Current study was also evaluated with a Computer Aided Detection (CAD) system. No significant masses, calcifications, or other findings are seen in either breast. There has been no significant interval change. IMPRESSION: NEGATIVE There is no mammographic evidence of malignancy. A 1 year screening mammogram is recommended. Based on the Tyrer Cuzick model (a risk assessment model) the patient's lifetime risk is 10.0% and her 10 year risk is 2.7%. According to the ACR, ACS, and NCCN guidelines, an annual breast MRI exam along with mammogram is recommended if the patient's lifetime risk is 20% or greater. This exam was interpreted at Station ID: [id number]. NOTE: For mammograms, a report in lay terms will be sent to the patient. Approximately 15% of breast malignancies will not be visualized mammographically. In the management of a palpable breast mass, a negative mammogram must not discourage biopsy of a clinically suspicious lesion. Electronically Signed By: Cathy tucker/vazquez:10/18/2023 14:16:52 letter sent: Normal Exam ACR BI-RADS Category 1: Negative 3341F
== END ==
LOC: MAMMO 11:48
PROVIDERS: Family Provider Nurse Practitioner Family; PCP Nurse Practitioner Family; Referring Provider Nurse Practitioner Family; Visit Provider Nurse Practitioner Family
DX: Z12.31 Encounter for screening mammogram for malignant neoplasm of breast (principal); Z80.3 Family history of malignant neoplasm of breast; R92.323 Mammographic fibroglandular density, bilateral breasts
CPT/HCPCS: 77063; 77067

== ENCOUNTER 2024-08-05 13:24 | Day surgery (SDC) | payer OTHER, SELFPAY ==
--- NOTE | 2024-08-05 | PATH_ITS ---
[facility] Accession Number: [id number] No. of containers..01 Tissue . 01 Material submitted: . colon - CECAL POLYP . 01 Diagnosis: CECAL POLYP: Tubular adenoma. [facility] 08/07/20241736 Local . 01 Electronically signed: . Andrei Ashton MD, Pathologist NPI- [id number] . 01 Gross description: . Received in formalin with two patient identifiers and cecal polyp, and consists of a 0.2 cm cui-brown irregular soft tissue, which is entirely submitted into cassette A1. ([id number]) /MRV 08/07/20241736 Local . 01 Pathologist provided ICD-10: D12.0 . 01 CPT . 163632 Specimen Comment: A courtesy copy of this report has been sent to [phone] Performed at: [address] [facility] [address], [place], [place] [id number] MD Andrei Ashton MD Phone: [phone]
[2024-08-05 14:31] VITALS: BP 111/64; PULSE 68; RESP 16; TEMP 36.3; O2SAT 99
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
--- NOTE | 2024-08-05 14:54 | PM.PREOP ---
Pre-operative Note Interval Note History & Physical reviewed/Exam performed by Physician: Yes Changes to H&P: No ASA Class (for procedural sedation): II
--- NOTE | 2024-08-05 16:50 | PM.OP.COLON ---
Operative Date/Time/Diagnoses Date of procedure: 08/05/24 Time of procedure: 16:50 Pre-op diagnosis: Personal history of adenomatous colon polyp Post-op diagnosis: same Procedure & Clinicians Study performed: Colonoscopy with cold forceps polypectomy Same procedure as scheduled: Yes Indications: Personal history of colon adenoma Surgeon: Omer Warren Procedure Notes SCOAP/Timeout: Done Procedure in detail: After the risks and benefits were explained, written and verbal informed consent was obtained. The patient was brought into the procedure room and placed into the left lateral decubitus position. Please see anesthesia note for sedation details. Digital rectal examination was accomplished. The scope was introduced into the patient and advanced under direct visualization to the cecum as identified by the appendiceal orifice and ileocecal valve. The scope was slowly withdrawn to carefully examine the mucosa for any defects or lesions. Comprehensive imaging was accomplished throughout the rectum including the dentate line. The colon was decompressed, the scope was then removed from the patient who tolerated the procedure well. Pediatric colonoscope Bowel prep adequate Scope withdrawal time: 12 minutes Sedation minutes: 20 Complications: none Impression: The patient had a fairly tortuous sigmoid colon. There was a diminutive 3 mm polyp in the cecum removed with cold forceps. The terminal ileum was visually normal. Otherwise there was no mucosal pathology identified throughout. Endoscopic diagnosis 1. Diminutive cecal polyp 2. Tortuous left colon Post-procedure Plan for aftercare: 1. Await histology 2. Repeat colonoscopy will likely be suggested for 7 years. Disposition: PACU
[2024-08-05 16:52] VITALS: BP 109/74; PULSE 104; RESP 20; TEMP 36.9; O2SAT 100
[2024-08-05 16:57] VITALS: BP 119/74; PULSE 98; RESP 12; O2SAT 98
[2024-08-05 17:03] VITALS: BP 108/75; PULSE 90; RESP 11; TEMP 36.6; O2SAT 100
== END 2024-08-05 17:22 | disposition home or self-care (01) ==
PROVIDERS: Family Provider Nurse Practitioner Family; PCP Family Medicine; Referring Provider Internal Medicine Gastroenterology; Visit Provider Internal Medicine Gastroenterology
PROC: 0DJD8ZZ Inspection of Lower Intestinal Tract, Via Natural or Artificial Opening Endoscopic (ICD-10-PCS; CPT 45378; principal; 2024-08-05 14:30)
DX: Z12.11 Encounter for screening for malignant neoplasm of colon (principal); Z86.0101 Personal history of adenomatous and serrated colon polyps; D12.0 Benign neoplasm of cecum
CPT/HCPCS: 45380; J2704

== ENCOUNTER 2024-10-13 15:12 | Emergency (ER) | payer OTHER, SELFPAY ==
[2024-10-13] VITALS (14 sets, daily range): BP systolic 106–160; BP diastolic 70–93; PULSE 79–106; RESP 18; TEMP 37.5; O2SAT 96–100; BMI 28.9
--- NOTE | 2024-10-13 15:24 | EKG_ITS ---
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
[2024-10-13 15:39] LABS: Add Manual Diff / Slide Review NO; Basophils Absolute Auto 100 /uL (0-100); Basophils Percent Auto 0.7 % (0-2); Eosinophils Absolute Auto 100 /uL (0-450); Eosinophils Percent Auto 1.6 % (2-4); Hematocrit 43.2 % (36-46); Hemoglobin 14.7 g/dL (12.0-16.0); Lymphocytes Absolute Auto 1900 /uL (1100-4500); Lymphocytes Percent Auto 27.5 % (25-40); Mean Corpuscular HGB Conc 34.2 % (30-36); Mean Corpuscular Hemoglobin 31.2 PG (26-34); Mean Corpuscular Volume 91.2 fL (80-100); Monocytes Absolute Auto 600 /uL (0-900); Neutrophils Absolute Auto 4400 /uL (1500-7000); Neutrophils Percent Auto 62.2 % (50-75); Platelet Count 263 X10^3/uL (150-400); Red Blood Cell Count 4.73 X10^6/uL (4.0-5.2); White Blood Cell Count 7.1 X10^3/uL (4.5-11.0)
[2024-10-13 15:49] LABS: Alanine Aminotransferase 25 IU/L (<35); Albumin 4.5 g/dL (3.5-5.0); Albumin Globulin Ratio 1.4 (1.0-2.8); Alkaline Phosphatase 82 U/L (38-126); Aspartate Aminotransferase 30 IU/L (14-36); BUN Creatinine Ratio 12.9 (6-22); Bilirubin Total 0.3 mg/dL (0.2-1.3); Blood Urea Nitrogen 11 mg/dL (7-17); Calcium 9.6 mg/dL (8.4-10.2); Carbon Dioxide 30 mmol/L (22-32); Chloride 103 mmol/L (98-107); Estimated Glomerular Filt Rate > 60 mL/min (>60); Globulin 3.3 g/dL (1.7-4.1); Glucose 115 mg/dL (70-100); HEMOLYSIS < 15 (0-50); Lipase 113 U/L (23-300); Potassium 3.5 mmol/L (3.4-5.1); Sodium 141 mmol/L (137-145); Total Protein 7.8 g/dL (6.3-8.2)
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
--- NOTE | 2024-10-13 20:53 | DI.CT.S_ITS ---
PROCEDURE: CT ABDOMEN PELVIS WO CON INDICATIONS: RMQ pain, hx endometriosis, hx Hyst TECHNIQUE: Axial sections were acquired from the lung bases to the pubic symphysis. Coronal and sagittal reformats were performed. For radiation dose reduction, the following was used: automated exposure control, adjustment of mA and/or kV according to patient size. COMPARISON: None. FINDINGS: Image quality: Diagnostic. Please note that evaluation is limited in the absence of intravenous contrast. Peritoneum: No pneumoperitoneum or ascites. Bones: No acute osseous abnormality. 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 Liver: Normal in size and contour. Gallbladder: No stones or pericholecystic fluid. Biliary tree: No intrahepatic or extrahepatic biliary ductal dilatation. Pancreas: Within normal limits. Spleen: Normal in size and contour. Kidneys: No hydronephrosis or obstructive urolithiasis. Punctate right superior cortical calcification, rather than a collecting system calculus (4/58). Adrenals: No adrenal nodularity. Bladder: Normal in size and wall thickness. : Surgically absent uterus. No abnormal adnexal masses. Stomach: Normal in size and contour. Bowel: Normal in diameter without any bowel obstruction. Nonvisualization of the appendix without secondary signs of acute appendicitis. There is, however, focal fat stranding along the anti mesenteric border of the proximal ascending colon (4/36). Lymph Nodes: No retroperitoneal, mesenteric, or inguinal lymphadenopathy. Mild hazy fat stranding around the central superior mesentery (2/55), a nonspecific finding. Vascular: No abdominal aortic aneurysm. Soft Tissues: No acute abnormality. IMPRESSION: 1. Focal fat stranding along the anti mesenteric border of the proximal ascending colon, likely associate financial representative of epiploic appendagitis. 2. No CT evidence of acute appendicitis. 3. No other acute CT abnormality of the abdomen/pelvis. Dictated by: Juno Martinez M.D. on 10/13/2024 at 22:09 Approved by: Juno Martinez M.D. on 10/13/2024 at 22:16
== END 2024-10-13 22:50 | disposition home or self-care (01) ==
PROVIDERS: Emergency Medicine; Emergency Provider Emergency Medicine; Family Provider Nurse Practitioner Family; PCP Family Medicine
DX: K63.89 Other specified diseases of intestine (principal); Z87.19 Personal history of other diseases of the digestive system
CPT/HCPCS: 36415; 74176; 80053; 81003; 83690; 85025; 93005; 99283; 99284

== ENCOUNTER → 2024-10-21 14:03 | Outpatient (CLI) | payer OTHER, SELFPAY ==
--- NOTE | 2024-10-21 14:04 | DI.MG.S_ITS ---
BILATERAL DIGITAL SCREENING MAMMOGRAM 3D/2D WITH CAD: 10/21/2024 CLINICAL: Routine screening. Family history breast cancer. Comparison is made to exams dated: 10/18/2023 mammogram, 10/13/2022 mammogram, and 10/12/2021 mammogram - [facility]. The breasts are almost entirely fatty (category a/<25% glandular tissue). Current study was also evaluated with a Computer Aided Detection (CAD) system. No significant masses, calcifications, or other findings are seen in either breast. There has been no significant interval change. IMPRESSION: NEGATIVE There is no mammographic evidence of malignancy. A 1 year screening mammogram is recommended. Based on the Tyrer Cuzick model (a risk assessment model) the patient's lifetime risk is 6.6% and her 10 year risk is 1.8%. According to the ACR, ACS, and NCCN guidelines, an annual breast MRI exam along with mammogram is recommended if the patient's lifetime risk is 20% or greater. This exam was interpreted at Station ID: [id number]. NOTE: For mammograms, a report in lay terms will be sent to the patient. Approximately 15% of breast malignancies will not be visualized mammographically. In the management of a palpable breast mass, a negative mammogram must not discourage biopsy of a clinically suspicious lesion. Electronically Signed By: Nicole west/vazquez:10/21/2024 17:00:39 letter sent: Normal Exam ACR BI-RADS Category 1: Negative
== END ==
PROVIDERS: Family Provider Nurse Practitioner Family; PCP Family Medicine; Referring Provider Family Medicine; Visit Provider Family Medicine
DX: Z12.31 Encounter for screening mammogram for malignant neoplasm of breast (principal); Z80.3 Family history of malignant neoplasm of breast; R92.313 Mammographic fatty tissue density, bilateral breasts
CPT/HCPCS: 77063; 77067

== ENCOUNTER → 2025-07-08 15:48 | Outpatient (CLI) | payer OTHER, SELFPAY ==
--- NOTE | 2025-07-08 15:52 | DI.MRI.S_ITS ---
PROCEDURE: MR THORACIC SPINE WO CON
--- NOTE | 2025-07-08 15:52 | DI.MRI.S_ITS ---
PROCEDURE: MR CERVICAL SPINE WO CON
--- NOTE | 2025-07-08 15:52 | DI.MRI.S_ITS ---
PROCEDURE: MR HEAD/BRAIN WO CON
== END ==
LOC: MRI 15:50
PROVIDERS: Family Provider Nurse Practitioner Family; PCP Family Medicine; Referring Provider Registered Nurse; Visit Provider Registered Nurse
DX: M47.22 Other spondylosis with radiculopathy, cervical region (principal); M48.02 Spinal stenosis, cervical region; S22.060A Wedge compression fracture of T7-T8 vertebra, initial encounter for closed fracture; S20.229A Contusion of unspecified back wall of thorax, initial encounter; R41.3 Other amnesia; R53.83 Other fatigue; R53.1 Weakness; R20.2 Paresthesia of skin; R20.8 Other disturbances of skin sensation; M79.7 Fibromyalgia; R26.89 Other abnormalities of gait and mobility; T36 Poisoning by, adverse effect of and underdosing of systemic antibiotics; M25.50 Pain in unspecified joint
CPT/HCPCS: 70551; 72141; 72146